=== PATIENT | male | born 1935 | race Two or more races ===

== ENCOUNTER 2017-11-23 18:10 | Inpatient (IN) | payer OTHER ==
[~2017-11-23] VITALS: Ht 165.1 cm; Wt 55.4 kg
[~2017-11-23 18:10] MED LIST: CHOL10003 PO; GLIP5TAB10 PO; METF500T17 PO; PANT40TA5 PO
[2017-11-23] MEDS ORDERED: SODIUM CHLORIDE FLUSH 10ML SYR IVF ONE (19:00)
[2017-11-23 19:39] LABS: INTERNATIONAL NORMALIZED RATIO 0.99 (0.93-1.1); PROTHROMBIN TIME 10.3 Seconds (9.6-11.5)
[2017-11-23 19:42] LABS: CHLORIDE 115 mmol/L (98-107)
[2017-11-23 19:49] LABS: ANION GAP 8 mmol/L (5-15); CALCIUM 8.4 mg/dL (8.5-10.1); CREATININE 0.77 mg/dL (0.7-1.3)
[2017-11-23 19:50] LABS: ALANINE AMINOTRANSFERASE 171 U/L (12-78); ALBUMIN 2.5 g/dL (3.4-5.0); ALKALINE PHOSPHATASE 646 U/L (45-117); BILIRUBIN,TOTAL 8.1 mg/dL (0.2-1.0); TOTAL PROTEIN 6.2 g/dL (6.4-8.2)
[2017-11-23 20:08] LABS: MD YES; MEAN CORPUSCULAR HEMOGLOBIN 34.4 pg (27.5-34.5); MEAN CORPUSCULAR HGB CONC 34.4 g/dL (33.2-36.2); MEAN PLATELET VOLUME 8.4 fL (7.4-10.4); PLATELET COUNT 165 x10^3/uL (130-400); RED BLOOD COUNT 3.37 x10^6/uL (4.38-5.82); RED CELL DISTRIBUTION WIDTH 16.5 % (9.4-14.8)
[2017-11-23 20:11] LABS: ANISOCYTOSIS 1+; BASOS#(MANUAL) 0.09 x10^3/uL (0-0.1); BASOS% (MANUAL) 2 % (0-1); EOS#(MANUAL) 0.19 x10^3/uL (0.0-0.4); EOS% (MANUAL) 4 % (1-7); LYMPH#(MANUAL) 0.85 x10^3/uL (1-3.4); LYMPHS% (MANUAL) 18 % (22-44); MONOS#(MANUAL) 0.28 x10^3/uL (0.3-2.7); MONOS% (MANUAL) 6 % (2-9); REACTIVE LYMPHS # (MANUAL) 0.05 x10^3/uL (0-0); REACTIVE LYMPHS % (MANUAL) 1 % (0-0); SEG#(MANUAL) 3.24 x10^3/uL (1.8-6.8); SEGS% (MANUAL) 69 % (42-75)
[2017-11-23 20:12] LABS: <PLATELET ESTIMATE> ADEQUATE; <PLT MORPHOLOGY> NORMAL PLT MORPH; OVALOCYTES 1+
[2017-11-23] MEDS ORDERED: DEXTROSE 50%, 50ML SYRINGE IVPush PRN (21:30)
[2017-11-23] MEDS ORDERED: GLUCAGON 1 MG IM PRN (21:30)
[2017-11-23] MEDS ORDERED: ONDANSETRON 2MG/ML, 2ML IVPush PRN (21:30)
[2017-11-23] MEDS ORDERED: IBUPROFEN 600 MG TABLET PO PRN (21:30)
[2017-11-23] MEDS ORDERED: POLYETHYLENE GLYCOL 17 GM PACKET PO PRN (21:30)
[2017-11-23] MEDS ORDERED: DEXTROSE 4 GM TAB.CHEW PO PRN (21:30)
[2017-11-23] MEDS ORDERED: morphine SULFATE 10 MG/ML, 1ML IVPush PRN (21:30)
[2017-11-23] MEDS ORDERED: OXYcodone IR 5MG TABLET PO PRN (21:30)
[2017-11-23] MEDS ORDERED: DOCUSATE 100 MG CAPSULE PO PRN (21:30)
[2017-11-23 21:47] LABS: MICROSCOPIC NOT IND
[2017-11-23 21:57] VITALS: BP 141/73
[2017-11-23 21:59] LABS: CULTURE INDICATED? NO
[2017-11-23] MEDS ORDERED: NS + 20MEQ KCL 1,000 ML IV SCH (22:00)
[2017-11-24 02:00] VITALS: BP 138/71
[2017-11-24 05:41] LABS: ALANINE AMINOTRANSFERASE 164 U/L (12-78); ALBUMIN 2.4 g/dL (3.4-5.0); ANION GAP 9 mmol/L (5-15); CALCIUM 8.2 mg/dL (8.5-10.1); CHLORIDE 114 mmol/L (98-107); CREATININE 0.95 mg/dL (0.7-1.3)
[2017-11-24 05:44] LABS: ALKALINE PHOSPHATASE 618 U/L (45-117); BILIRUBIN,TOTAL 7.9 mg/dL (0.2-1.0); TOTAL PROTEIN 5.8 g/dL (6.4-8.2)
[2017-11-24 06:30] LABS: CLOSTRIDIUM DIFFICILE TOXIN NEGATIVE (Negative)
[2017-11-24 06:31] LABS: CLOSTRIDIUM DIFFICILE ANTIGEN POSITIVE
[2017-11-24] MEDS: INSULIN LISPRO 100 UNITS/ML, PEN SQ-INSULIN SCH ×4 (07:00→20:45)
[2017-11-24 07:37] VITALS: BP 120/57
[2017-11-24] MEDS: SENNA/DOCUSATE TABLET PO SCH (09:00)
[2017-11-24] MEDS: FAMOTIDINE 20 MG TABLET PO SCH ×2 (09:00→20:06)
[2017-11-24] MEDS: SODIUM CHLORIDE FLUSH 10ML SYR IVF SCH ×2 (09:48→20:06)
[2017-11-24] MEDS ORDERED: MIDAZOLAM 1 MG/ML, 2ML ONE (14:02)
[2017-11-24] MEDS ORDERED: PROPOFOL 10 MG/ML, 20ML ONE (14:02)
[2017-11-24] MEDS ORDERED: SUCCINYLCHOLINE 20 MG/ML, 10ML ONE (14:02)
[2017-11-24] MEDS ORDERED: FENTANYL PF 100 MCG/2ML ONE (14:03)
[2017-11-24] MEDS ORDERED: PIPERACILLIN/TAZO/PMX 3.375GM 50 ML ONE (14:19)
[2017-11-24] MEDS ORDERED: OMNIPAQUE 350 MG/ML, 50 ML BOTTLE ONE (14:31)
[2017-11-24] MEDS ORDERED: HALOPERIDOL 5 MG/ML IV PRN (15:00)
[2017-11-24] MEDS ORDERED: ONDANSETRON ODT 8 MG PO PRN (15:00)
[2017-11-24] MEDS ORDERED: HYDROmorphone 2 MG/ML, 1ML IV PRN (15:00)
[2017-11-24] MEDS ORDERED: OXYcodone 5 MG/5 ML ORAL.SOL UDC PO PRN (15:00)
[2017-11-24] MEDS ORDERED: LABETALOL 5MG/ML, 20ML IV PRN (15:00)
[2017-11-24] MEDS ORDERED: FENTANYL PF 100 MCG/2ML IV PRN (15:00)
[2017-11-24] MEDS ORDERED: hydrALAzine 20 MG/ML, 1ML IV PRN (15:00)
[2017-11-24] MEDS ORDERED: MEPERIDINE/PF 25MG/0.5ML IVPush PRN (15:00)
[2017-11-24] MEDS: SODIUM CHLORIDE 0.45% 1,000 ML IV SCH (15:22)
[2017-11-24] MEDS: PIPERACILLIN/TAZO/PMX 3.375GM 50 ML IV SCH ×2 (15:26→22:59)
[2017-11-24 19:39] VITALS: BP 126/63
[2017-11-25 02:16] VITALS: BP 117/62
[2017-11-25 05:41] LABS: MEAN CORPUSCULAR HEMOGLOBIN 34.6 pg (27.5-34.5); MEAN CORPUSCULAR HGB CONC 34.1 g/dL (33.2-36.2); MEAN CORPUSCULAR VOLUME 101.3 fL (81-97); MEAN PLATELET VOLUME 8.5 fL (7.4-10.4); PLATELET COUNT 155 x10^3/uL (130-400); RED BLOOD COUNT 3.26 x10^6/uL (4.38-5.82); RED CELL DISTRIBUTION WIDTH 16.7 % (9.4-14.8)
[2017-11-25 05:57] LABS: ALBUMIN 2.2 g/dL (3.4-5.0); ANION GAP 6 mmol/L (5-15); CALCIUM 8.3 mg/dL (8.5-10.1); CHLORIDE 112 mmol/L (98-107)
[2017-11-25 06:03] LABS: ALANINE AMINOTRANSFERASE 148 U/L (12-78); ALKALINE PHOSPHATASE 581 U/L (45-117); BILIRUBIN,TOTAL 9.5 mg/dL (0.2-1.0); CREATININE 0.95 mg/dL (0.7-1.3); TOTAL PROTEIN 5.8 g/dL (6.4-8.2)
[2017-11-25 06:23] LABS: MD YES
[2017-11-25 06:25] LABS: EOS#(MANUAL) 0.22 x10^3/uL (0.0-0.4); EOS% (MANUAL) 5 % (1-7); LYMPHS% (MANUAL) 21 % (22-44); MONOS#(MANUAL) 0.34 x10^3/uL (0.3-2.7); MONOS% (MANUAL) 8 % (2-9); REACTIVE LYMPHS # (MANUAL) 0.04 x10^3/uL (0-0); REACTIVE LYMPHS % (MANUAL) 1 % (0-0); SEGS% (MANUAL) 65 % (42-75)
[2017-11-25 06:26] LABS: <PLATELET ESTIMATE> ADEQUATE; <PLT MORPHOLOGY> NORMAL PLT MORPH; ANISOCYTOSIS 1+
[2017-11-25] MEDS: INSULIN LISPRO 100 UNITS/ML, PEN SQ-INSULIN SCH ×4 (07:00→20:31)
[2017-11-25] MEDS: PIPERACILLIN/TAZO/PMX 3.375GM 50 ML IV SCH ×3 (07:42→23:23)
[2017-11-25 08:40] VITALS: BP 103/59
[2017-11-25] MEDS: FAMOTIDINE 20 MG TABLET PO SCH ×2 (08:46→20:36)
[2017-11-25] MEDS: SODIUM CHLORIDE FLUSH 10ML SYR IVF SCH ×2 (08:46→20:38)
[2017-11-25] MEDS: SENNA/DOCUSATE TABLET PO SCH (08:47)
[2017-11-25 12:30] VITALS: BP 130/67
[2017-11-25] MEDS: SODIUM CHLORIDE 0.45% 1,000 ML IV SCH (12:58)
[2017-11-25 20:21] VITALS: BP 118/56
[2017-11-26 01:05] VITALS: BP 110/60
[2017-11-26 05:23] LABS: CHLORIDE 112 mmol/L (98-107)
[2017-11-26 05:26] LABS: MEAN CORPUSCULAR HEMOGLOBIN 35.1 pg (27.5-34.5); MEAN CORPUSCULAR HGB CONC 34.6 g/dL (33.2-36.2); MEAN CORPUSCULAR VOLUME 101.5 fL (81-97); MEAN PLATELET VOLUME 8.8 fL (7.4-10.4); PLATELET COUNT 162 x10^3/uL (130-400); RED BLOOD COUNT 3.14 x10^6/uL (4.38-5.82); RED CELL DISTRIBUTION WIDTH 16.4 % (9.4-14.8)
[2017-11-26 05:27] LABS: MD YES
[2017-11-26 05:55] LABS: <PLATELET ESTIMATE> ADEQUATE; <PLT MORPHOLOGY> NORMAL PLT MORPH; ANISOCYTOSIS 1+; EOS#(MANUAL) 0.34 x10^3/uL (0.0-0.4); EOS% (MANUAL) 8 % (1-7); HYPOCHROMIA 1+; LYMPH#(MANUAL) 0.99 x10^3/uL (1-3.4); LYMPHS% (MANUAL) 23 % (22-44); MONOS#(MANUAL) 0.34 x10^3/uL (0.3-2.7); MONOS% (MANUAL) 8 % (2-9); SEG#(MANUAL) 2.62 x10^3/uL (1.8-6.8); SEGS% (MANUAL) 61 % (42-75)
[2017-11-26 05:56] LABS: ALANINE AMINOTRANSFERASE 132 U/L (12-78); ALBUMIN 2.3 g/dL (3.4-5.0); ALKALINE PHOSPHATASE 540 U/L (45-117); ANION GAP 9 mmol/L (5-15); BILIRUBIN,TOTAL 9.2 mg/dL (0.2-1.0); CALCIUM 8.5 mg/dL (8.5-10.1); CREATININE 1.07 mg/dL (0.7-1.3); TOTAL PROTEIN 5.8 g/dL (6.4-8.2)
[2017-11-26 06:57] VITALS: BP 108/64
[2017-11-26] MEDS: INSULIN LISPRO 100 UNITS/ML, PEN SQ-INSULIN SCH ×4 (07:00→20:37)
[2017-11-26] MEDS: PIPERACILLIN/TAZO/PMX 3.375GM 50 ML IV SCH ×3 (07:31→23:34)
[2017-11-26] MEDS: SODIUM CHLORIDE 0.45% 1,000 ML IV SCH (07:33)
[2017-11-26] MEDS: FAMOTIDINE 20 MG TABLET PO SCH ×2 (08:52→20:38)
[2017-11-26] MEDS: SENNA/DOCUSATE TABLET PO SCH (09:00)
[2017-11-26] MEDS: SODIUM CHLORIDE FLUSH 10ML SYR IVF SCH ×2 (09:35→21:00)
[2017-11-26] MEDS ORDERED: OMNIPAQUE 350 MG/ML, 100ML BOTTLE ONE (11:12)
[2017-11-26 12:19] VITALS: BP 151/71
[2017-11-26 21:13] VITALS: BP 147/64
[2017-11-27 01:02] VITALS: BP 105/56
[2017-11-27 04:56] LABS: MEAN CORPUSCULAR HEMOGLOBIN 35.2 pg (27.5-34.5); MEAN CORPUSCULAR HGB CONC 34.9 g/dL (33.2-36.2); MEAN CORPUSCULAR VOLUME 100.7 fL (81-97); MEAN PLATELET VOLUME 8.6 fL (7.4-10.4); PLATELET COUNT 154 x10^3/uL (130-400); RED BLOOD COUNT 3.08 x10^6/uL (4.38-5.82); RED CELL DISTRIBUTION WIDTH 16.4 % (9.4-14.8)
[2017-11-27 05:03] LABS: CHLORIDE 112 mmol/L (98-107)
[2017-11-27 05:10] LABS: ALANINE AMINOTRANSFERASE 122 U/L (12-78); ALBUMIN 2.2 g/dL (3.4-5.0); ALKALINE PHOSPHATASE 492 U/L (45-117); ANION GAP 7 mmol/L (5-15); BILIRUBIN,TOTAL 10.1 mg/dL (0.2-1.0); CALCIUM 8.2 mg/dL (8.5-10.1); TOTAL PROTEIN 5.9 g/dL (6.4-8.2)
[2017-11-27 05:48] LABS: MD YES
[2017-11-27 05:52] LABS: BASOS#(MANUAL) 0.17 x10^3/uL (0-0.1); BASOS% (MANUAL) 4 % (0-1); EOS#(MANUAL) 0.09 x10^3/uL (0.0-0.4); EOS% (MANUAL) 2 % (1-7); LYMPH#(MANUAL) 0.52 x10^3/uL (1-3.4); LYMPHS% (MANUAL) 12 % (22-44); MONOS#(MANUAL) 0.09 x10^3/uL (0.3-2.7); MONOS% (MANUAL) 2 % (2-9); SEG#(MANUAL) 3.44 x10^3/uL (1.8-6.8); SEGS% (MANUAL) 80 % (42-75)
[2017-11-27 05:53] LABS: <PLATELET ESTIMATE> ADEQUATE; <PLT MORPHOLOGY> NORMAL PLT MORPH; ANISOCYTOSIS 1+; HYPOCHROMIA 1+
[2017-11-27] MEDS: INSULIN LISPRO 100 UNITS/ML, PEN SQ-INSULIN SCH ×4 (07:00→21:00)
[2017-11-27] MEDS: PIPERACILLIN/TAZO/PMX 3.375GM 50 ML IV SCH ×3 (07:32→23:47)
[2017-11-27] MEDS: SODIUM CHLORIDE 0.45% 1,000 ML IV SCH (07:32)
[2017-11-27] MEDS ORDERED: LOPERAMIDE 2 MG CAPSULE PO PRN ×2 (08:00)
[2017-11-27 08:18] VITALS: BP 130/66
[2017-11-27] MEDS: FAMOTIDINE 20 MG TABLET PO SCH ×2 (09:00→20:56)
[2017-11-27] MEDS: SENNA/DOCUSATE TABLET PO SCH (09:00)
[2017-11-27] MEDS: SODIUM CHLORIDE FLUSH 10ML SYR IVF SCH ×2 (09:09→21:00)
[2017-11-27] MEDS ORDERED: ONDANSETRON 2MG/ML, 2ML ONE (10:29)
[2017-11-27] MEDS ORDERED: ROCURONIUM 10MG/ML,5ML ONE (10:29)
[2017-11-27] MEDS ORDERED: DEXAMETHASONE 4 MG/ML, 1ML ONE (10:29)
[2017-11-27] MEDS ORDERED: FENTANYL PF 100 MCG/2ML ONE (10:38)
[2017-11-27] MEDS ORDERED: MIDAZOLAM 1 MG/ML, 2ML ONE (10:38)
[2017-11-27] MEDS ORDERED: OXYcodone 5 MG/5 ML ORAL.SOL UDC PO PRN (11:30)
[2017-11-27] MEDS ORDERED: HALOPERIDOL 5 MG/ML IV PRN (11:30)
[2017-11-27] MEDS ORDERED: hydrALAzine 20 MG/ML, 1ML IV PRN (11:30)
[2017-11-27] MEDS ORDERED: HYDROmorphone 1 MG/ML, 1ML IV PRN (11:30)
[2017-11-27] MEDS ORDERED: ALBUTEROL SULFATE 2.5 MG/3 ML NPPB PRN (11:30)
[2017-11-27] MEDS ORDERED: LABETALOL 5MG/ML, 20ML IV PRN (11:30)
[2017-11-27] MEDS ORDERED: FENTANYL PF 100 MCG/2ML IV PRN (11:30)
[2017-11-27] MEDS ORDERED: OMNIPAQUE 350 MG/ML, 50 ML BOTTLE ONE (11:51)
[2017-11-27 14:33] VITALS: BP 153/62
[2017-11-27 20:10] VITALS: BP 115/67
[2017-11-27 20:30] VITALS: BP 149/69
[2017-11-27] MEDS ORDERED: INSULIN LISPRO 100 UNITS/ML, PEN SQ-INSULIN SCH (22:30)
[2017-11-28 01:09] VITALS: BP 114/57
[2017-11-28 06:04] LABS: CHLORIDE 106 mmol/L (98-107)
[2017-11-28 06:10] LABS: ALANINE AMINOTRANSFERASE 109 U/L (12-78); ALBUMIN 2.2 g/dL (3.4-5.0); ALKALINE PHOSPHATASE 448 U/L (45-117); ANION GAP 10 mmol/L (5-15); BILIRUBIN,TOTAL 10.3 mg/dL (0.2-1.0); CALCIUM 8.1 mg/dL (8.5-10.1); CREATININE 1.28 mg/dL (0.7-1.3); TOTAL PROTEIN 5.9 g/dL (6.4-8.2)
[2017-11-28] MEDS: INSULIN LISPRO 100 UNITS/ML, PEN SQ-INSULIN SCH ×4 (07:26→20:45)
[2017-11-28] MEDS: FAMOTIDINE 20 MG TABLET PO SCH ×2 (07:27→20:40)
[2017-11-28] MEDS: PIPERACILLIN/TAZO/PMX 3.375GM 50 ML IV SCH ×3 (07:27→23:29)
[2017-11-28] MEDS: SODIUM CHLORIDE FLUSH 10ML SYR IVF SCH ×2 (07:28→20:46)
[2017-11-28] MEDS: SENNA/DOCUSATE TABLET PO SCH (07:30)
[2017-11-28] MEDS: SODIUM CHLORIDE 0.45% 1,000 ML IV SCH (07:30)
[2017-11-28 08:00] VITALS: BP 130/69
[2017-11-28 12:11] VITALS: BP 135/63
[2017-11-28 19:57] VITALS: BP 117/56
[2017-11-29 04:10] VITALS: BP 105/57
[2017-11-29] MEDS: SODIUM CHLORIDE 0.45% 1,000 ML IV SCH (04:10)
[2017-11-29 05:08] LABS: HCT (SEDRATE) 31.1 % (39.2-51.8)
[2017-11-29 05:12] LABS: ANION GAP 11 mmol/L (5-15); CHLORIDE 109 mmol/L (98-107)
[2017-11-29 05:18] LABS: INTERNATIONAL NORMALIZED RATIO 1.02 (0.93-1.1); PROTHROMBIN TIME 10.6 Seconds (9.6-11.5)
[2017-11-29 05:22] LABS: MEAN CORPUSCULAR HEMOGLOBIN 35.8 pg (27.5-34.5); MEAN CORPUSCULAR HGB CONC 35.4 g/dL (33.2-36.2); MEAN CORPUSCULAR VOLUME 101.1 fL (81-97); MEAN PLATELET VOLUME 9.2 fL (7.4-10.4); PLATELET COUNT 155 x10^3/uL (130-400); RED BLOOD COUNT 3.04 x10^6/uL (4.38-5.82); RED CELL DISTRIBUTION WIDTH 16.5 % (9.4-14.8)
[2017-11-29 05:26] LABS: ALANINE AMINOTRANSFERASE 126 U/L (12-78); ALKALINE PHOSPHATASE 412 U/L (45-117); CREATININE 1.13 mg/dL (0.7-1.3); TOTAL PROTEIN 5.7 g/dL (6.4-8.2)
[2017-11-29 05:47] LABS: MD YES
[2017-11-29 05:50] LABS: EOS#(MANUAL) 0.11 x10^3/uL (0.0-0.4); EOS% (MANUAL) 2 % (1-7)
[2017-11-29 05:52] LABS: LYMPHS% (MANUAL) 17 % (22-44); SEG#(MANUAL) 4.13 x10^3/uL (1.8-6.8); SEGS% (MANUAL) 75 % (42-75)
[2017-11-29 05:53] LABS: ANISOCYTOSIS 1+; LYMPH#(MANUAL) 0.94 x10^3/uL (1-3.4); MONOS#(MANUAL) 0.33 x10^3/uL (0.3-2.7); MONOS% (MANUAL) 6 % (2-9)
[2017-11-29 05:54] LABS: <PLATELET ESTIMATE> ADEQUATE; <PLT MORPHOLOGY> NORMAL PLT MORPH
[2017-11-29] MEDS: INSULIN LISPRO 100 UNITS/ML, PEN SQ-INSULIN SCH ×4 (07:00→20:28)
[2017-11-29 07:06] VITALS: BP 115/68
[2017-11-29 07:09] VITALS: BP 150/73
[2017-11-29] MEDS: PIPERACILLIN/TAZO/PMX 3.375GM 50 ML IV SCH (07:19)
[2017-11-29] MEDS: FAMOTIDINE 20 MG TABLET PO SCH ×2 (07:45→20:27)
[2017-11-29] MEDS: SENNA/DOCUSATE TABLET PO SCH (07:45)
[2017-11-29] MEDS: SODIUM CHLORIDE FLUSH 10ML SYR IVF SCH ×2 (07:45→21:00)
[2017-11-29 13:17] VITALS: BP 137/67
[2017-11-29] MEDS: LACTOBACILLUS CHEW TABLET PO SCH ×2 (16:43→20:27)
[2017-11-29 19:16] VITALS: BP 116/72
[2017-11-29] MEDS: AMOXICILLIN/CLAV 875-125MG TABLET PO SCH (20:27)
[2017-11-30 01:20] VITALS: BP 109/68
[2017-11-30 05:51] LABS: ANION GAP 9 mmol/L (5-15); CALCIUM 8.4 mg/dL (8.5-10.1); CHLORIDE 109 mmol/L (98-107)
[2017-11-30 05:52] LABS: CREATININE 1.03 mg/dL (0.7-1.3)
[2017-11-30 05:53] LABS: MEAN CORPUSCULAR HEMOGLOBIN 35.5 pg (27.5-34.5); MEAN CORPUSCULAR VOLUME 101.5 fL (81-97); MEAN PLATELET VOLUME 8.9 fL (7.4-10.4); PLATELET COUNT 174 x10^3/uL (130-400); RED BLOOD COUNT 3.17 x10^6/uL (4.38-5.82); RED CELL DISTRIBUTION WIDTH 16.6 % (9.4-14.8)
[2017-11-30 06:04] LABS: MD YES
[2017-11-30 06:06] LABS: <PLATELET ESTIMATE> ADEQUATE; <PLT MORPHOLOGY> NORMAL PLT MORPH; ANISOCYTOSIS 1+; EOS#(MANUAL) 0.05 x10^3/uL (0.0-0.4); EOS% (MANUAL) 1 % (1-7); LYMPH#(MANUAL) 1.64 x10^3/uL (1-3.4); LYMPHS% (MANUAL) 31 % (22-44); MONOS#(MANUAL) 0.32 x10^3/uL (0.3-2.7); MONOS% (MANUAL) 6 % (2-9); SEG#(MANUAL) 3.29 x10^3/uL (1.8-6.8); SEGS% (MANUAL) 62 % (42-75)
[2017-11-30] MEDS: INSULIN LISPRO 100 UNITS/ML, PEN SQ-INSULIN SCH ×2 (07:00→11:00)
[2017-11-30 07:02] VITALS: BP 126/71
[2017-11-30] MEDS: FAMOTIDINE 20 MG TABLET PO SCH (09:04)
[2017-11-30] MEDS: AMOXICILLIN/CLAV 875-125MG TABLET PO SCH (09:04)
[2017-11-30] MEDS: SENNA/DOCUSATE TABLET PO SCH (09:04)
[2017-11-30] MEDS: LACTOBACILLUS CHEW TABLET PO SCH (09:04)
[2017-11-30] MEDS: SODIUM CHLORIDE FLUSH 10ML SYR IVF SCH (09:05)
[2017-11-30] MEDS ORDERED: DOCU-131 PO (11:03)
[2017-11-30] MEDS ORDERED: FAMO20TA7 PO (11:03)
[2017-11-30] MEDS ORDERED: SENN1TAB8 PO (11:03)
[2017-11-30] MEDS ORDERED: AMOX1TAB12 PO (11:03)
[2017-11-30] MEDS ORDERED: ACID1TAB7 PO (11:03)
== END 2017-11-30 11:40 | disposition home health service (06) | DRG 919 ==
LOC: ED 21:00 → SUATTDRO 21:09 → EDIP 21:26 → 3NW 21:51 → DCLOUNGE 11-30 11:34
PROVIDERS: ADMIT Family Medicine; ATTEND Family Medicine
PROC: 0FC98ZZ Extirpation of Matter from Common Bile Duct, Via Natural or Artificial Opening Endoscopic (ICD-10-PCS; principal; 2017-11-24 12:30)
PROC: 0F768ZZ Dilation of Left Hepatic Duct, Via Natural or Artificial Opening Endoscopic (ICD-10-PCS; 2017-11-27)
PROC: 0FC98ZZ Extirpation of Matter from Common Bile Duct, Via Natural or Artificial Opening Endoscopic (ICD-10-PCS; 2017-11-27)
PROC: BF101ZZ Fluoroscopy of Bile Ducts using Low Osmolar Contrast (ICD-10-PCS; 2017-11-27)
DX: T85.898A Other specified complication of other internal prosthetic devices, implants and grafts, initial encounter (principal); K83.1 Obstruction of bile duct; C78.7 Secondary malignant neoplasm of liver and intrahepatic bile duct; C18.9 Malignant neoplasm of colon, unspecified; E44.0 Moderate protein-calorie malnutrition; K83.0 Cholangitis; I73.00 Raynaud's syndrome without gangrene; H91.90 Unspecified hearing loss, unspecified ear; E11.9 Type 2 diabetes mellitus without complications; D53.9 Nutritional anemia, unspecified; Y83.8 Other surgical procedures as the cause of abnormal reaction of the patient, or of later complication, without mention of misadventure at the time of the procedure; K31.9 Disease of stomach and duodenum, unspecified; E78.5 Hyperlipidemia, unspecified; I10 Essential (primary) hypertension; K52.9 Noninfective gastroenteritis and colitis, unspecified; N27.0 Small kidney, unilateral; Z51.5 Encounter for palliative care; Z82.49 Family history of ischemic heart disease and other diseases of the circulatory system; Z83.3 Family history of diabetes mellitus; Z87.891 Personal history of nicotine dependence; Y92.89 Other specified places as the place of occurrence of the external cause; Z87.11 Personal history of peptic ulcer disease; Z98.49 Cataract extraction status, unspecified eye; Z90.49 Acquired absence of other specified parts of digestive tract
CPT/HCPCS: 36415; 74160; 74328; 76700; 80048; 80053; 81003; 82947; 82962; 83690; 83735; 84100; 84145; 85025; 85610; 85651; 85730; 86140; 87046; 87324; 87427; 87493; 93005; 99285; G0378; J1100; J2250; J2405; J2543; J2704; J3010; J3480; Q9967; C1769; J0330; J1815